=== PATIENT | female | born 1950 | race Caucasian/White ===

== ENCOUNTER 2019-02-18 04:15 | Emergency (ER) | payer MEDICARE, BC ==
[~2019-02-18] VITALS: Ht 157.5 cm; Wt 55.5 kg
[2019-02-18 04:20] VITALS: Ht 157.5 cm; Wt 55.5 kg
[2019-02-18] MEDS ORDERED: CELLCEPT250 MG PO (04:23)
[2019-02-18] MEDS ORDERED: ZOVIRAX200 MG PO (04:24)
[2019-02-18] MEDS ORDERED: FIBERCON625 MG PO (04:24)
[2019-02-18] MEDS ORDERED: CALCIUM 600 +1 EAC3 PO (04:24)
[2019-02-18] MEDS ORDERED: TYLENOL PM1 TAB PO (04:25)
[2019-02-18] MEDS ORDERED: ZITHROMAX250 MG PO (04:26)
[2019-02-18] MEDS ORDERED: EVISTA60 MG PO (04:26)
[2019-02-18] MEDS ORDERED: FERROUS SULFAT325 MG PO (04:26)
[2019-02-18] MEDS ORDERED: MEPRON750 MG/5 M PO (04:27)
[2019-02-18] MEDS ORDERED: TACROLIMUS ANHYD1 MG PO (04:27)
[2019-02-18] MEDS ORDERED: PROGRAF0.5 M1 PO (04:28)
[2019-02-18] MEDS ORDERED: MAG-OXIDE400 MG PO (04:28)
[2019-02-18] MEDS ORDERED: HYDROCODON-ACE1 EA10 PO (04:28)
[2019-02-18] MEDS ORDERED: PREDNISONE10 MG PO (04:29)
[2019-02-18] MEDS ORDERED: CENTRUM SILVER1 EAC3 PO (04:29)
[2019-02-18] MEDS ORDERED: VASOTEC20 MG PO (04:29)
[2019-02-18] MEDS ORDERED: AMBIEN10 MG PO (04:30)
[2019-02-18] MEDS ORDERED: PROTONIX40 MG PO (04:30)
[2019-02-18] MEDS ORDERED: SINGULAIR10 MG PO (04:30)
[2019-02-18] MEDS ORDERED: ZANAFLEX4 MG PO (04:31)
[2019-02-18 05:09] LABS: ANION GAP 14.5 mmol/L (8-16); CALCIUM 9.6 mg/dL (8.5-10.1); CARBON DIOXIDE 26.9 mmol/L (21.0-32.0); CREATININE - SERUM 2.2 mg/dL (0.6-1.3); POTASSIUM - SERUM 3.4 mmol/L (3.5-5.1)
[2019-02-18 05:12] LABS: BASOPHILS 0.5 % (0-2); EOSINOPHILS 1.4 % (0-7); HEMATOCRIT 40.7 % (36.0-48.0); HEMOGLOBIN 13.4 g/dL (12-16); IMMATURE GRANULOCYTES 0.2 % (0-5); MCHC 32.9 g/dL (31.0-37.0); MCV 103.3 fL (80.0-100.0); MONOCYTES 13.4 % (2-11); NEUTROPHILS 71.5 % (40-80); PLATELET COUNT 269 10x3/uL (130-400); RBC 3.94 10x6/uL (4.00-5.40); RDW 13.4 % (11.5-14.5); WBC 5.8 10x3/uL (4.8-10.8)
[2019-02-18 05:20] LABS: ALBUMIN 3.5 g/dL (3.4-5.0); BILIRUBIN - TOTAL 0.23 mg/dL (0.2-1.3); PROTEIN - SERUM 7.5 g/dL (6.4-8.2); TROPONIN-I 0.041 ng/mL (0.000-0.060)
[2019-02-18 05:35] LABS: APPEARANCE CLEAR (CLEAR); BILIRUBIN NEGATIVE (NEGATIVE); COLOR STRAW (YELLOW); GLUCOSE NEGATIVE (NEGATIVE); KETONE NEGATIVE (NEGATIVE); NITRITE NEGATIVE (NEGATIVE); PROTEIN NEGATIVE (NEGATIVE); UROBILINOGEN NORMAL (NORMAL)
[2019-02-18 05:36] LABS: BACTERIA FEW /hpf (NEGATIVE); EPITHELIAL CELLS 0-5 /hpf (0-5); RED CELLS - URINE 0-5 /hpf (0-5); WHITE CELLS - URINE 0-5 /hpf (NEGATIVE)
[2019-02-18 07:30] VITALS: BP 139/76
== END 2019-02-18 07:30 | disposition home or self-care (01) ==
LOC: D.ER 04:15
PROVIDERS: Family Medicine
DX: K21.9 Gastro-esophageal reflux disease without esophagitis (principal); N28.9 Disorder of kidney and ureter, unspecified; Z94.2 Lung transplant status; I10 Essential (primary) hypertension; J44.9 Chronic obstructive pulmonary disease, unspecified